=== PATIENT | female | born 1980 | race American Indian/Alaskan Native ===

== ENCOUNTER 2017-03-07 13:00 | Inpatient (IN) | payer MEDICARE ==
[2017-03-07] MEDS ORDERED: TYLENOL PO ONE (14:14)
--- NOTE | 2017-03-07 14:16 | Emergency Department Report ---
Entered by JO-ANN MICHAELS, acting as scribe for KAREL LIRA NP. Chief Complaint: Fever Stated Complaint: SICKLE CELL PAIN Time Seen by Provider: 03/07/17 13:50 - HPI History of Present Illness: Pt is non-toxic, non ill appearing, in no acute distress with c/o a fever and cramping right low back pain. Patient states she had a fever of 102 last night. Denies urgency, frequency, and dysuria. Denies abdominal pain, nausea, and vomiting PMHx of sickle cell anemia. Pt denies that this feels like a sickle cell crisis - ROS Review of Systems: Reports fever. Reports right low back pain Denies dysuria, urgency, and frequency Denies abdominal pain, nausea, and vomiting - Exam Vital Signs: Vital Signs 03/07/17 13:37 Temperature 100.1 F H Pulse Rate 93 H Blood Pressure 98/68 O2 Sat by Pulse 100 Oximetry Physical Exam: Constitutional: Non toxic appearing, NAD. Cardiovascular: Normal rate and rhythm with normal S1/S2 sounds. Respiratory: No respiratory distress. Lung sounds clear to auscultation bilaterally. Abdomen: Abdomen is non-distended, soft with no tenderness to palpation in all quadrants. Back: FROM. No spinal tenderness. Right CVA tenderness present. MSE screening note: Focused history and physical exam performed. Due to findings the following was ordered: BMP, CBC, pregnanct test, type and screen stat, reticulocyte count, and UA will be ordered for patient Pt also received acetaminophen 650 mg by mouth for fever and pain. ED Disposition for MSE Condition: Stable This documentation as recorded by the scribe,JO-ANN MICHAELS,accurately reflects the service I personally performed and the decisions made by me,KAREL LIRA, JOSTIN.
[2017-03-07 14:51] LABS: Bacteria,Urine 2+ /HPF (Negative); Bilirubin,Urine NEG (Negative); Blood,Urine NEG (Negative); Ketones,Urine NEG (Negative); Leukocyte Esterase,Urine NEG (Negative); Nitrite,Urine NEG (Negative); Urobilinogen,Urine < 2.0 mg/dL (<2.0); WBC,Urine < 1.0 /HPF (0.0-6.0)
[2017-03-08] MEDS ORDERED: BENADRYL IV ONE (02:56)
[2017-03-08] MEDS ORDERED: MORPHINE IV ONE (02:56)
[2017-03-08] MEDS ORDERED: ZOFRAN IV ONE (02:56)
[2017-03-08] MEDS ORDERED: TORADOL IV ONE (02:56)
[2017-03-08] MEDS ORDERED: D5NS 0.2% 1,000 ML IV SCH (03:00)
[2017-03-08 03:33] LABS: Basophils % (Auto) 0.4 % (0.0-1.8); Eosinophils % (Auto) 0.7 % (0.0-4.3); Hemoglobin 6.7 gm/dl (10.1-14.3); Mean Corpuscular HGB Conc 34 % (30-34); Mean Corpuscular Hemoglobin 29 pg (28-32); Mean Corpuscular Volume 85 fl (79-97); Platelet Count 218 K/mm3 (140-440); Red Blood Count 2.32 M/mm3 (3.65-5.03); Reticulocyte % 4.01 % (0.78-2.58); White Blood Count 14.4 K/mm3 (4.5-11.0)
[2017-03-08 03:38] LABS: Red Cell Distribution Width 22.5 % (13.2-15.2)
[2017-03-08 03:39] LABS: Hematocrit 19.7 % (30.3-42.9)
[2017-03-08 03:43] LABS: Anion Gap 19 mmol/L; Blood Urea Nitrogen 11 mg/dL (7-17); Calcium 8.3 mg/dL (8.4-10.2); Carbon Dioxide 19 mmol/L (22-30); Glucose 83 mg/dL (65-100); Potassium 4.2 mmol/L (3.6-5.0); Sodium 134 mmol/L (137-145)
[2017-03-08 03:53] LABS: Albumin/Globulin Ratio 1.1 %; Bilirubin,Direct 0.4 mg/dL (0-0.2); Bilirubin,Indirect 2.1 mg/dL; Bilirubin,Total 2.5 mg/dL (0.1-1.2); Total Protein 7.5 g/dL (6.3-8.2)
--- NOTE | 2017-03-08 05:02 | Cat Scan Report ---
FINAL REPORT PROCEDURE: CT ABDOMEN PELVIS WO CON TECHNIQUE: Computerized axial tomography of the abdomen and pelvis was performed without intravenous contrast. This study is performed without intravascular contrast material and its sensitivity for abdominal and pelvic pathology, including neoplasms, inflammation, abscess, free fluid, thrombosis, arterial dissection and infarction, is reduced compared with a contrast enhanced study. HISTORY: right flank pain, sickle cell, fever COMPARISON: No prior studies are available for comparison. FINDINGS: Visualized lower thorax: There is calcified granuloma the right lung base. There are no infiltrates. Liver: Normal size and attenuation. 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 Gallbladder and biliary system: There has been a cholecystectomy.. Pancreas: Normal. Adrenals: Normal. Kidneys: There are no kidney stones. There is no hydronephrosis.. GI tract: The appendix is normal. There is no bowel obstruction, colitis or enteritis. Lymph nodes and mesentery: Normal. Vasculature: Normal. Bladder: Normal. Reproductive organs: Uterus is normal in size. There is ill-defined mass in the left adnexal region measuring approximately 5.3 x 4.5 x 5.2 centimeters. There is surrounding fluid. This could be a hemorrhagic left ovarian cyst or mass. Further evaluation with ultrasound may be helpful.. Peritoneum: There is a small amount of free pelvic fluid.. Musculoskeletal structures: There are sclerotic densities in the thoracic and lumbar spine suggesting old bony infarcts related to sickle cell disease.. Other: There is a small umbilical hernia containing fat only.. 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 There has been a cholecystectomy.. There are no kidney stones. There is no hydronephrosis.. The appendix is normal. There is no bowel obstruction, colitis or enteritis. There is ill-defined mass in the left adnexal region measuring approximately 5.3 x 4.5 x 5.2 centimeters. There is surrounding fluid. This could be a hemorrhagic left ovarian cyst or mass. Further evaluation with ultrasound may be helpful.. There is a small amount of free pelvic fluid.. .
--- NOTE | 2017-03-08 05:04 | Emergency Department Report ---
ED Fever HPI - General Chief Complaint: Fever Stated Complaint: SICKLE CELL PAIN Time Seen by Provider: 03/07/17 20:38 Source: patient Exam Limitations: no limitations - History of Present Illness Initial Comments: 36-year-old female the past medical history sickle cell disease and seizures presents to the hospital complaining of right flank pain 2 days. Pain is constant, aching, rated 8/10 intensity. Worse with movement and palpation. No alleviating factors. Patient has had a fever high of 100.2 since last night. Patient denies nausea, vomiting, cough, abdominal pain, dysuria, or diarrhea. 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 Patient states she still has her spleen to her knowledge and that this feels different from her typical sickle cell crisis ED Review of Systems ROS: Stated complaint: SICKLE CELL PAIN Other details as noted in HPI Comment: All other systems reviewed and negative Other: Constitutional: As per HPI Eyes: No eye pain visual changes ENT: No ear pain or throat pain Neck: Denies pain Respiratory: Denies cough wheezing shortness of breath Cardiovascular: Denies chest pain, palpitations, syncope GI: Denies abdominal pain : Denies dysuria Musculoskeletal: As per HPI Skin: Denies rash, lesions, erythema Neurologic: Denies headache, numbness, weakness Psychiatric: Denies suicidal ideation, hallucinations ED Past Medical Hx - Past Medical History Hx Sickle Cell Disease: Yes Hx Seizures: Yes Additional medical history: Sickle cell - Surgical History Hx Cholecystectomy: Yes Additional Surgical History: port in left chest - Social History Smoking Status: Never Smoker Substance Use Type: Alcohol - Medications Home Medications: Home Medications Medication Instructions Recorded Confirmed Last Taken Type Acetaminophen/Codeine 1 tab PO Q6H PRN #30 tab 07/01/14 03/08/17 03/07/17 Rx [Acetaminophen-Codeine #3 TAB] Cyclobenzaprine [Flexeril 10mg] 10 mg PO TID PRN #30 tablet 07/01/14 03/08/17 Rx Ibuprofen [Motrin 800 MG tab] 800 mg PO Q6HR PRN #50 tablet 07/01/14 03/08/17 Rx ED Physical Exam - General Limitations: No Limitations - Other Other exam information: General: No limitations, patient is alert in no acute distress Head exam: Atraumatic, normocephalic Eyes exam: Normal appearance ENT: Moist mucous membrane, normal oropharynx Neck exam: Normal inspection, full range of motion, no meningismus nontender Respiratory exam: Clear to auscultation bilateral, no wheezes, rales, crackles. Patient supports to left chest wall Cardiovascular: Normal rate and rhythm Abdomen: Soft, nondistended, and nontender, with normal bowel sounds, no rebound, or guarding Extremity: Full range of motion normal inspection no deformity Back: Normal Inspection, full range of motion, right flank tenderness to palpation. No midline tenderness Neurologic: Alert, oriented x3, cranial nerves intact, no motor or sensory deficit Psychiatric: normal affect, normal mood Skin: Warm, dry, intactm ED Course Vital Signs 03/07/17 03/07/17 03/08/17 13:37 23:48 02:40 Temperature 100.1 F H 99.6 F 100.2 F H Pulse Rate 93 H 71 Respiratory 18 Rate Blood Pressure 98/68 103/67 O2 Sat by Pulse 100 100 Oximetry ED Medical Decision Making - Lab Data Result diagrams: 03/08/17 03:01 03/08/17 03:01 Lab Results 03/07/17 03/08/17 03/08/17 Range/Units 14:33 03:01 03:01 WBC 14.4 H (4.5-11.0) K/mm3 RBC 2.32 L (3.65-5.03) M/mm3 Hgb 6.7 L (10.1-14.3) gm/dl Hct 19.7 L* (30.3-42.9) % MCV 85 (79-97) fl MCH 29 (28-32) pg MCHC 34 (30-34) % RDW 22.5 H (13.2-15.2) % Plt Count 218 (140-440) K/mm3 Lymph % (Auto) 15.9 (13.4-35.0) % [place] % (Auto) 8.0 H (0.0-7.3) % Eos % (Auto) 0.7 (0.0-4.3) % Baso % (Auto) 0.4 (0.0-1.8) % Lymph # 2.3 (1.2-5.4) K/mm3 [place] # 1.2 H (0.0-0.8) K/mm3 Eos # 0.1 (0.0-0.4) K/mm3 Baso # 0.1 (0.0-0.1) K/mm3 Seg Neutrophils % 75.0 H (40.0-70.0) % Seg Neutrophils # 10.8 H (1.8-7.7) K/mm3 Percent Retic 4.01 H (0.78-2.58) % Carbon Dioxide 19 L (22-30) mmol/L Anion Gap 19 mmol/L BUN 11 (7-17) mg/dL Creatinine 0.4 L (0.7-1.2) mg/dL Estimated GFR > 60 ml/min BUN/Creatinine Ratio 27.50 % Glucose 83 (65-100) mg/dL Calcium 8.3 L (8.4-10.2) mg/dL Total Bilirubin (0.1-1.2) mg/dL Direct Bilirubin (0-0.2) mg/dL Indirect Bilirubin mg/dL AST (5-40) units/L ALT (7-56) units/L Alkaline Phosphatase (35-129) units/L Total Protein (6.3-8.2) g/dL Albumin (3.9-5) g/dL Albumin/Globulin Ratio % HCG, Qual (Negative) Urine Color Yellow (Yellow) Urine Turbidity Clear (Clear) Urine pH 7.0 (5.0-7.0) Ur Specific [place] 1.010 (1.003-1.030) Urine Protein 30 mg/dl (Negative) mg/dL Urine Glucose (UA) Neg (Negative) mg/dL Urine Ketones Neg (Negative) mg/dL Urine Blood Neg (Negative) Urine Nitrite Neg (Negative) Urine Bilirubin Neg (Negative) Urine Urobilinogen < 2.0 (<2.0) mg/dL Ur Leukocyte Esterase Neg (Negative) Urine WBC (Auto) < 1.0 (0.0-6.0) /HPF Urine RBC (Auto) 1.0 (0.0-6.0) /HPF U Epithel Cells (Auto) < 1.0 (0-13.0) /HPF Urine Bacteria (Auto) 2+ (Negative) /HPF 03/08/17 03/08/17 Range/Units 03:01 03:01 WBC (4.5-11.0) K/mm3 RBC (3.65-5.03) M/mm3 Hgb (10.1-14.3) gm/dl Hct (30.3-42.9) % MCV (79-97) fl MCH (28-32) pg MCHC (30-34) % RDW (13.2-15.2) % Plt Count (140-440) K/mm3 Lymph % (Auto) (13.4-35.0) % [place] % (Auto) (0.0-7.3) % Eos % (Auto) (0.0-4.3) % Baso % (Auto) (0.0-1.8) % Lymph # (1.2-5.4) K/mm3 [place] # (0.0-0.8) K/mm3 Eos # (0.0-0.4) K/mm3 Baso # (0.0-0.1) K/mm3 Seg Neutrophils % (40.0-70.0) % Seg Neutrophils # (1.8-7.7) K/mm3 Percent Retic (0.78-2.58) % Carbon Dioxide (22-30) mmol/L Anion Gap mmol/L BUN (7-17) mg/dL Creatinine (0.7-1.2) mg/dL Estimated GFR ml/min BUN/Creatinine Ratio % Glucose (65-100) mg/dL Calcium (8.4-10.2) mg/dL Total Bilirubin 2.50 H (0.1-1.2) mg/dL Direct Bilirubin 0.4 H (0-0.2) mg/dL Indirect Bilirubin 2.1 mg/dL AST 47 H (5-40) units/L ALT 16 (7-56) units/L Alkaline Phosphatase 68 (35-129) units/L Total Protein 7.5 (6.3-8.2) g/dL Albumin 4.0 (3.9-5) g/dL Albumin/Globulin Ratio 1.1 % HCG, Qual Negative (Negative) Urine Color (Yellow) Urine Turbidity (Clear) Urine pH (5.0-7.0) Ur Specific [place] (1.003-1.030) Urine Protein (Negative) mg/dL Urine Glucose (UA) (Negative) mg/dL Urine Ketones (Negative) mg/dL Urine Blood (Negative) Urine Nitrite (Negative) Urine Bilirubin (Negative) Urine Urobilinogen (<2.0) mg/dL Ur Leukocyte Esterase (Negative) Urine WBC (Auto) (0.0-6.0) /HPF Urine RBC (Auto) (0.0-6.0) /HPF U Epithel Cells (Auto) (0-13.0) /HPF Urine Bacteria (Auto) (Negative) /HPF na= 134 K 4.2 chl 100 - Radiology Data Radiology results: report reviewed ct abd and pelvis noncontrast. Spleen is atrophic and dense suggesting possible old spenic infarct. Pedis cholecystectomy. Appendix normal. No kidney stones. Mass in the left adnexal region measuring 5.3 x 4.5 x 5.2 cm. There is surrounding fluid. This could be a hemorrhagic left ovarian cyst or mass. - Medical Decision Making Plans admit patient to hospital for sickle cell crisis with associated anemia and fever. Source of fever unknown at this time. Ultrasound transvaginal pending at disposition. Vancomycin ordered empirically. Blood cultures pending - Differential Diagnosis UTI, renal colic, appendicitis, diverticulitis, sickle cell crisis, bactere Critical Care Time: No Critical care attestation.: If time is entered above; I have spent that time in minutes in the direct care of this critically ill patient, excluding procedure time. ED Disposition Clinical Impression: Fever, Right flank pain, Left ovarian cyst Disposition: 09 OP ADMIT IP TO THIS HOSP Is pt being admited?: Yes Condition: Stable Time of Disposition: 06:10 (Dr Garcia/hosp)
[2017-03-08] MEDS ORDERED: NACL 0.9% 1000 ML 1,000 ML IV ONE (06:07)
[2017-03-08] MEDS ORDERED: VANCOMYCIN/NS 1 GM/250 ML 1 GM/250 ML BAG IV ONE (06:09)
--- NOTE | 2017-03-08 07:22 | Admit Criteria Form ---
Admission Criteria Documentation: SICKLE CELL DISEASE Clinical Indications for Admission to Inpatient Care (Place 'X' for any and all applicable criteria): Admission is indicated for ANY ONE of the following(1)(2)(3)(4)(5): [X]I. Inpatient admission required rather than observation care because of ANY ONE of the following: [ ]a) Altered mental status [X]b) High fever or infection requiring inpatient admission as indicated by ANY ONE of the following: [X]A. Appropriate outpatient observation care antimicrobial treatment unavailable, not effective, or not appropriate for infection [ ]B. Documented bacteremia [ ]C. Temp >104.9F (40.5C) (oral) [ ]D. Temp >103.1F (oral) or <96.8F(rectal) that does not respond to all emergency treatment measures [ ]c) Supplemental O2 or respiratory therapy for over 24 h that are performable only in acute inpatient setting [X]d) Continuous parenteral narcoticsother major pain intervention for >24 h performable only in acute inpatient setting. [ ]e) Exchange transfusion [X]f) Other condition, treatment or monitoring requiring inpatient admission [ ]II. Acute chest syndrome indicated by ALL of the following (10): [ ]a) New alveolar infiltrate involving at least one lung segment [ ]b) Associated pulmonary symptoms or findings as indicated by ANY ONE of the following: [ ]i) Chest pain [ ]ii) Hypoxemia [ ]iii) Tachypnea/dyspnea [ ]iv) Wheezing [ ]v) Cough [ ]vi) Sputum production [ ]III. Significant hypoxemia or acidosis (more severe than baseline) [ ]IV. Emergent surgery needed (eg, acute cholecystitis) [ ]V. -related complication(11) [ ]. Splenic or hepatic sequestration(12) [ ]VII. Aplastic crisis [ ]VIII. Priapism or other vascular complication(13) [ ]IX. Traumatic hyphema [A](14) [ ]X. Underlying condition requiring hospitalization (eg, osteomyelitis) [ ]XI. Signs or symptoms of central nervous system injury indicated by ANY ONE of the following: [ ]a) Stroke(9) [ ]b) Seizure [ ]c) Other significant central nervous system symptom or event [ ]XII. Acute renal failure Extended stay beyond goal length of stay may be needed for: [ ]a) Inadequate pain control [ ]b) Acute chest syndrome [ ]c) Sequestration or aplastic crisis (12) [ ]d) Pneumonia and asthma exacerbation [ ]e) Neurologic or vascular complications (25) [ ]f) Infection (eg, osteomyelitis) that requires ongoing treatment) The original [facility] [employer] content created by [facility] has been revised. The portions of the content which have been revised are identified through the use of italic text or in bold, and [facility] has neither reviewed nor approved the modified material. All other unmodified content is copyright [facility]. Please see references footnoted in the original [facility] [employer] edition 2016 Admission Criteria Met: Yes
[2017-03-08] MEDS ORDERED: MORPHINE ONE (07:26)
[2017-03-08] MEDS ORDERED: TYLENOL PO PRN (07:36)
[2017-03-08] MEDS ORDERED: ZOFRAN IV PRN (07:36)
[2017-03-08] MEDS ORDERED: MILK OF MAGNESIA PO PRN ×2 (07:36)
[2017-03-08] MEDS ORDERED: DULCOLAX PR PRN ×2 (07:36)
[2017-03-08] MEDS ORDERED: ZOFRAN ONE (07:40)
[2017-03-08] MEDS: ZOFRAN IV PRN ×2 (07:45→20:56)
--- NOTE | 2017-03-08 07:48 | Ultrasound Report ---
ULTRASOUND PELVIS DUPLEX DOPPLER COMPLETE ULTRASOUND TRANSVAGINAL HISTORY: Left adnexal mass, fever. TECHNIQUE: Transabdominal and transvaginal ultrasound with color and spectral doppler interrogation. FINDINGS: CT abdomen pelvis without contrast performed earlier the same day was reviewed. Ultrasound also demonstrates a complex, heterogeneous, partially cystic mass in the left adnexa measuring 4.1 x 2.9 x 2.9 cm. The left ovary is not clearly demonstrated on ultrasound. With given history of fever, this may represent an early left tubo-ovarian abscess. The right ovary measures 4.3 x 2.6 x 4.0 cm. There are 2 simple cysts in the right ovary measuring 2.6 cm and 1.6 cm. The uterus is anteverted and measures 8.2 x 3.8 x 3.1 cm. No uterine mass. Normal cervix. Normal endometrium measuring 7.3 cm. No pelvic ascites is appreciated. Spectral Doppler interrogation demonstrates arterial flow to both adnexal regions. IMPRESSION: Complex mass like lesion in the left adnexa as described above. With given history, PID or early left tubo-ovarian abscess should be considered. This does not have the typical appearance of a mass/neoplasm. Hemorrhagic cyst could be considered but is thought less likely. Please note that the left ovary is not clearly demonstrated on ultrasound. CT with IV and oral contrast may provide additional detail of the left adnexal process. Please correlate with the patient's clinical presentation. 2 simple cysts in the right ovary.
--- NOTE | 2017-03-08 07:51 | History and Physical Report ---
History of Present Illness Date of examination: 03/08/17 Date of admission: 03/08/17 Chief complaint: Fever and Right flank pain History of present illness: A 36-year-old -N[place]alese female presented to the ED from home with complaints of right flank pain 2 days. Pain is constant aching, rated 8 of 10 on a scale of 0/10. Worse with movement and palpation. No alleviating factors. Patient has had a fever high of 100.2 past 2 days. Patient denies nausea, vomiting, cough, shortness of breath, abdominal pain, dysuria, or diarrhea. 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 Past History Past Medical History: other (Sickle Cell Anemia) Past Surgical History: Other (Right Chest wall Port placed 2001) Social history: single, lives with family (lives with her son), full code. denies: smoking, alcohol abuse, prescription drug abuse, IV drug use Family history: CAD, diabetes. denies: other (Cardiac arrest) Medications and Allergies Allergies Allergy/AdvReac Type Severity Reaction Status Date / Time amoxicillin Allergy Hives Verified 03/08/17 06:09 erythromycin base Allergy Hives Verified 11/24/15 19:24 Home Medications Medication Instructions Recorded Confirmed Last Taken Type Acetaminophen/Codeine [Tylenol 1 tab PO Q6H PRN #30 tab 07/01/14 03/08/17 Rx /Codeine # 3 tab] Cyclobenzaprine [Flexeril 10 MG 10 mg PO TID PRN #30 tablet 07/01/14 03/08/17 Rx TAB] Ciprofloxacin HCl [Ciprofloxacin 500 mg PO Q12H #10 tab 03/09/17 Unknown Rx TAB] Folic Acid [Folvite] 1 mg PO QDAY #30 tablet 03/09/17 Unknown Rx Multivitamin Tab [Multiple Vitamin 1 each PO QDAY #30 tablet 03/09/17 Unknown Rx TAB (Theragran)] metroNIDAZOLE [Flagyl] 500 mg PO Q12HR #10 tab 03/09/17 Unknown Rx Active Meds: Active Medications Acetaminophen (Tylenol) 650 mg PO Q4H PRN PRN Reason: Pain MILD(1-3)/Fever >100.5/BAY Bisacodyl (Dulcolax) 10 mg MT QDAY PRN PRN Reason: Constipation unrelieved by MOM Folic Acid (Folvite) 1 mg PO QDAY [facility] Hydromorphone HCl (Dilaudid) 0.5 mg IV Q3H PRN PRN Reason: Pain , Severe (7-10) Magnesium Hydroxide (Milk Of Magnesia) 30 ml PO Q4H PRN PRN Reason: Constipation Multivitamins (Theragran Tab) 1 each PO QDAY [facility] Ondansetron HCl (Zofran) 4 mg IV Q8H PRN PRN Reason: Nausea And Vomiting Review of Systems Constitutional: fever, no chills, no sweats Ears, nose, mouth and throat: no nasal congestion, no nasal discharge, no hoarseness, no sore throat Breasts: normal Cardiovascular: no edema, no syncope, no lightheadedness, no shortness of breath Respiratory: no cough with sputum, no congestion, no wheezing Gastrointestinal: abdominal pain, no nausea, no vomiting, no diarrhea, no constipation Rectal: no pain, no incontinence Neurological: no numbness, no seizures, no syncope Psychiatric: no anxiety, no suicidal ideation, no depression Endocrine: no fatigue Exam - Constitutional Vitals: Temp Pulse Resp BP Pulse Ox 100.2 F H 71 18 103/67 100 03/08/17 02:40 03/07/17 23:48 03/07/17 23:48 03/07/17 23:48 03/07/17 23:48 General appearance: Absent: no acute distress - EENT Eyes: Present: PERRL ENT: hearing intact, clear oral mucosa - Neck Neck: Present: supple, normal ROM - Respiratory Respiratory effort: normal Respiratory: bilateral: CTA - Cardiovascular Rhythm: regular Heart Sounds: Present: S1 & S2. Absent: rub, click - Extremities Extremities: pulses symmetrical, No edema Peripheral Pulses: within normal limits - Abdominal General gastrointestinal: Present: soft, non-tender, non-distended, normal bowel sounds Female genitourinary: Present: normal - Integumentary Integumentary: Present: clear, warm, dry - Musculoskeletal Musculoskeletal: gait normal, strength equal bilaterally - Psychiatric Psychiatric: appropriate mood/affect, intact judgment & insight - Neurologic Neurologic: CNII-XII intact, moves all extremities - Allied Health Allied health notes reviewed: nursing Results - Labs CBC & Chem 7: 03/09/17 04:04 03/09/17 04:04 Labs: Laboratory Last Values WBC 14.4 K/mm3 (4.5-11.0) H 03/08/17 03:01 RBC 2.32 M/mm3 (3.65-5.03) L 03/08/17 03:01 Hgb 6.7 gm/dl (10.1-14.3) L 03/08/17 03:01 Hct 19.7 % (30.3-42.9) L* 03/08/17 03:01 MCV 85 fl (79-97) 03/08/17 03:01 MCH 29 pg (28-32) 03/08/17 03:01 MCHC 34 % (30-34) 03/08/17 03:01 RDW 22.5 % (13.2-15.2) H 03/08/17 03:01 Plt Count 218 K/mm3 (140-440) 03/08/17 03:01 Lymph % (Auto) 15.9 % (13.4-35.0) 03/08/17 03:01 [place] % (Auto) 8.0 % (0.0-7.3) H 03/08/17 03:01 Eos % (Auto) 0.7 % (0.0-4.3) 03/08/17 03:01 Baso % (Auto) 0.4 % (0.0-1.8) 03/08/17 03:01 Lymph # 2.3 K/mm3 (1.2-5.4) 03/08/17 03:01 [place] # 1.2 K/mm3 (0.0-0.8) H 03/08/17 03:01 Eos # 0.1 K/mm3 (0.0-0.4) 03/08/17 03:01 Baso # 0.1 K/mm3 (0.0-0.1) 03/08/17 03:01 Seg Neutrophils % 75.0 % (40.0-70.0) H 03/08/17 03:01 Seg Neutrophils # 10.8 K/mm3 (1.8-7.7) H 03/08/17 03:01 Percent Retic 4.01 % (0.78-2.58) H 03/08/17 03:01 Carbon Dioxide 19 mmol/L (22-30) L 03/08/17 03:01 Anion Gap 19 mmol/L 03/08/17 03:01 BUN 11 mg/dL (7-17) 03/08/17 03:01 Creatinine 0.4 mg/dL (0.7-1.2) L 03/08/17 03:01 Estimated GFR > 60 ml/min 03/08/17 03:01 BUN/Creatinine Ratio 27.50 % 03/08/17 03:01 Glucose 83 mg/dL (65-100) 03/08/17 03:01 Calcium 8.3 mg/dL (8.4-10.2) L 03/08/17 03:01 Total Bilirubin 2.50 mg/dL (0.1-1.2) H 03/08/17 03:01 Direct Bilirubin 0.4 mg/dL (0-0.2) H 03/08/17 03:01 Indirect Bilirubin 2.1 mg/dL 03/08/17 03:01 AST 47 units/L (5-40) H 03/08/17 03:01 ALT 16 units/L (7-56) 03/08/17 03:01 Alkaline Phosphatase 68 units/L (35-129) 03/08/17 03:01 Total Protein 7.5 g/dL (6.3-8.2) 03/08/17 03:01 Albumin 4.0 g/dL (3.9-5) 03/08/17 03:01 Albumin/Globulin Ratio 1.1 % 03/08/17 03:01 HCG, Qual Negative (Negative) 03/08/17 03:01 Urine Color Yellow (Yellow) 03/07/17 14:33 Urine Turbidity Clear (Clear) 03/07/17 14:33 Urine pH 7.0 (5.0-7.0) 03/07/17 14:33 Ur Specific [place] 1.010 (1.003-1.030) 03/07/17 14:33 Urine Protein 30 mg/dl mg/dL (Negative) 03/07/17 14:33 Urine Glucose (UA) Neg mg/dL (Negative) 03/07/17 14:33 Urine Ketones Neg mg/dL (Negative) 03/07/17 14:33 Urine Blood Neg (Negative) 03/07/17 14:33 Urine Nitrite Neg (Negative) 03/07/17 14:33 Urine Bilirubin Neg (Negative) 03/07/17 14:33 Urine Urobilinogen < 2.0 mg/dL (<2.0) 03/07/17 14:33 Ur Leukocyte Esterase Neg (Negative) 03/07/17 14:33 Urine WBC (Auto) < 1.0 /HPF (0.0-6.0) 03/07/17 14:33 Urine RBC (Auto) 1.0 /HPF (0.0-6.0) 03/07/17 14:33 U Epithel Cells (Auto) < 1.0 /HPF (0-13.0) 03/07/17 14:33 Urine Bacteria (Auto) 2+ /HPF (Negative) 03/07/17 14:33 Assessment and Plan Assessment and plan: A 36-year-old -N[place]alese female presented to the ED from home with complaints of right flank pain 2 days. Pain is constant aching, rated 8 of 10 on a scale of 0/10. Worse with movement and palpation. No alleviating factors. Patient has had a fever high of 100.2 since last night. Patient denies nausea, vomiting, cough, abdominal pain, dysuria, or diarrhea. 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 Patient's records from [place] have been requested. -Sickle cell crisis-consulted hematology, IV fluids hydration ordered, antibiotics ordered, O2 supplement when needed to keep O2 sat greater than 90%, when necessary pain medication ordered -Chronic anemia due to sickle cell anemia- will monitor H&H and will transfuse if hemoglobin is 5.0 or less -Ovarian cysts- consulted [facility] -Leukocytosis-rule out sepsis, lactic acid normal, possible to due to sickle cell crisis versus hemorrhagic ovarian cyst- treating underlying causes -DVT prophylaxis- heparin SQ ordered Advance Directives: No ( Full code) VTE prophylaxis?: Chemical Plan of care discussed with patient/family: Yes
[2017-03-08] MEDS ORDERED: MOTRIN PO PRN (08:22)
[2017-03-08] MEDS ORDERED: FLEXERIL PO PRN (08:22)
--- NOTE | 2017-03-08 09:59 | XRay Report ---
ROUTINE CHEST, TWO VIEWS: HISTORY: Shortness of breath, evaluate for pneumonia. The trachea, heart, mediastinal contour, lung alaniz and bony thorax are unremarkable. Right [id number] is in good position. IMPRESSION: Unremarkable chest x-ray.
[2017-03-08] MEDS: THERAGRAN Tab PO SCH (11:43)
[2017-03-08] MEDS: FOLVITE PO SCH (11:43)
[2017-03-08] MEDS: FLAGYL 500 MG/100 ML 500 MG/100 ML BAG IV SCH ×3 (11:45→22:42)
[2017-03-08] MEDS: LEVAQUIN 750MG/150ML 750 MG/150 ML BAG IV SCH (13:16)
--- NOTE | 2017-03-08 13:21 | Consultation ---
History of Present Illness Consult date: 03/08/17 Reason for consult: pelvic pain, ovarian cyst, pelvic mass History of present illness: A 36-year-old female 2 para 1 LMP 02/12/2017. She presented to [facility] ED today complaining of right flank pain and temperature of 100.1 at home. Her evaluation in the ED revealed a white count of 14,000. She again had a temperature of 100.1. Ultrasound revealed a left adnexal complex cystic structure measuring approximately 4 cm. Findings were concerning for TOA/abscess. Today patient states she started having left lower quadrant pain last PM. She denies fevers, chills, nausea,vomiting. She denies vaginal discharge. She states she has not had sex since the beginning of 2015. 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 History: denies: abnormal PAP smear (she states her last Pap smear was 2 years ago.), cancer, chlamydia, fibroids, gonorrhea, hepatitis B, hepatitis C, herpes, HIV, syphilis, trichomonas - Obstetrical History : 2 Para: 1 Hx # Term Pregnancies: 1 Spontaneous Abortions: 1 Number of Living Children: 1 Medications and Allergies Allergies Allergy/AdvReac Type Severity Reaction Status Date / Time amoxicillin Allergy Hives Verified 03/08/17 06:09 erythromycin base Allergy Hives Verified 11/24/15 19:24 Home Medications Medication Instructions Recorded Confirmed Last Taken Type Acetaminophen/Codeine 1 tab PO Q6H PRN #30 tab 07/01/14 03/08/17 03/07/17 Rx [Acetaminophen-Codeine #3 TAB] Cyclobenzaprine [Flexeril 10mg] 10 mg PO TID PRN #30 tablet 07/01/14 03/08/17 Rx Ibuprofen [Motrin 800 MG tab] 800 mg PO Q6HR PRN #50 tablet 07/01/14 03/08/17 Rx Active Meds: Active Medications Acetaminophen (Tylenol) 650 mg PO Q4H PRN PRN Reason: Pain MILD(1-3)/Fever >100.5/BAY Bisacodyl (Dulcolax) 10 mg DE QDAY PRN PRN Reason: Constipation unrelieved by MOM Cyclobenzaprine HCl (Flexeril) 10 mg PO TID PRN PRN Reason: Muscle Spasm Enoxaparin Sodium (Lovenox) 40 mg SUB-Q ONCE ONE Stop: 03/08/17 13:16 Folic Acid (Folvite) 1 mg PO QDAY [facility] Last Admin: 03/08/17 11:43 Dose: 1 mg Hydromorphone HCl (Dilaudid) 0.5 mg IV Q3H PRN PRN Reason: Pain , Severe (7-10) Metronidazole (Flagyl 500 Mg/100 Ml) 500 mg in 100 mls @ 100 mls/hr IV Q8HR [facility] Last Admin: 03/08/17 11:45 Dose: 100 mls/hr Sodium Chloride (Nacl 0.9% 1000 Ml) 1,000 mls @ 125 mls/hr IV DIRECT [facility] Levofloxacin/Dextrose (Levaquin 750mg/150ml) 750 mg in 150 mls @ 100 mls/hr IV Q24HR [facility] PRN Reason: Protocol Last Admin: 03/08/17 13:16 Dose: 100 mls/hr Magnesium Hydroxide (Milk Of Magnesia) 30 ml PO Q4H PRN PRN Reason: Constipation Multivitamins (Theragran Tab) 1 each PO QDAY [facility] Last Admin: 03/08/17 11:43 Dose: 1 each Ondansetron HCl (Zofran) 4 mg IV Q8H PRN PRN Reason: Nausea And Vomiting Last Admin: 03/08/17 07:45 Dose: 4 mg Review of Systems All systems: negative Gastrointestinal: abdominal pain Genitourinary: pelvic pain - Vital Signs Vital signs: Vital Signs Temp Pulse BP Pulse Ox 100.1 F H 93 H 98/68 100 03/07/17 13:37 03/07/17 13:37 03/07/17 13:37 03/07/17 13:37 Temp Pulse Resp BP Pulse Ox 99 F 78 16 107/73 100 03/08/17 09:00 03/08/17 09:00 03/08/17 09:00 03/08/17 09:00 03/08/17 08:00 - Physical Exam Breasts: Positive: deferred Abdomen: Positive: normal appearance, soft, normal bowel sounds Vulva: both: normal Vagina: Positive: normal moisture Cervix: Positive: other (negative for cervical motion tenderness) Adnexa: both: normal Anus/Rectum: Positive: normal perianal skin Extremities: Positive: normal Results Result Diagrams: 03/08/17 03:01 03/08/17 03:01 All other labs normal. Ultrasound: report reviewed, image reviewed CT scan - abdomen: report reviewed Assessment and Plan - Patient Problems (1) LLQ pain Current Visit: Yes Status: Acute (2) Left ovarian cyst Current Visit: Yes Status: Acute Plan to address problem: Patient to call picture is more consistent with hemorrhagic cyst. Clinical exam is not consistent with pelvic inflammatory disease. However recommend the patient continue with Levaquin and metronidazole for now. Will perform a gonorrhea and chlamydia. Follow with you
[2017-03-08] MEDS ORDERED: LOVENOX SUB-Q SCH (14:00)
[2017-03-08] MEDS: DILAUDID IV PRN ×2 (14:48→20:55)
[2017-03-08 17:32] LABS: Hemoglobin 5.8 gm/dl (10.1-14.3)
[2017-03-08 17:33] LABS: Hematocrit 16.8 % (30.3-42.9)
[2017-03-08] MEDS ORDERED: NACL 0.9% 500 ML 500 ML IV SCH ×2 (17:50→19:00)
[2017-03-08] MEDS: NACL 0.9% 1000 ML 1,000 ML IV SCH (18:51)
--- NOTE | 2017-03-08 19:50 | Consultation ---
History of Present Illness - Reason for Consult Consult date: 03/08/17 SCD/Pain/ANEMIA Requesting physician: DOROTEO BRYANT - History of Present Illness Thank you for this consult, Patient seen/examined, record/labs reviewed, case d/ w patient. kindly asked to see for reasons above. patient presented withLeft adenoma pain/fever, w/up in the ED revealed abscess like lesion, Patient is started on IV ABX/hydration/ pain meds. Currently, she is ok with pain control.Will monitor labs/patient with you. Blood transfusion ,appropriate when indicated. Past History Past Medical History: anemia, other (Sickle Cell Anemia) Past Surgical History: cholecystectomy, Other (Right Chest wall Port placed 2001 ) Social history: single, lives with family (lives with her son), full code. denies: smoking, alcohol abuse, prescription drug abuse, IV drug use Family history: CAD, diabetes. denies: other (Cardiac arrest) Medications and Allergies Allergies Allergy/AdvReac Type Severity Reaction Status Date / Time amoxicillin Allergy Hives Verified 03/08/17 06:09 erythromycin base Allergy Hives Verified 11/24/15 19:24 Home Medications Medication Instructions Recorded Confirmed Last Taken Type Acetaminophen/Codeine 1 tab PO Q6H PRN #30 tab 07/01/14 03/08/17 03/07/17 Rx [Acetaminophen-Codeine #3 TAB] Cyclobenzaprine [Flexeril 10mg] 10 mg PO TID PRN #30 tablet 07/01/14 03/08/17 Rx Ibuprofen [Motrin 800 MG tab] 800 mg PO Q6HR PRN #50 tablet 07/01/14 03/08/17 Rx Active Meds: Active Medications Acetaminophen (Tylenol) 650 mg PO Q4H PRN PRN Reason: Pain MILD(1-3)/Fever >100.5/BAY Bisacodyl (Dulcolax) 10 mg [place] QDAY PRN PRN Reason: Constipation unrelieved by MOM Cyclobenzaprine HCl (Flexeril) 10 mg PO TID PRN PRN Reason: Muscle Spasm Folic Acid (Folvite) 1 mg PO QDAY [facility] Last Admin: 03/08/17 11:43 Dose: 1 mg Heparin Sodium (Porcine) (Heparin) 5,000 unit SUB-Q Q12HR [facility] Hydromorphone HCl (Dilaudid) 0.5 mg IV Q3H PRN PRN Reason: Pain , Severe (7-10) Last Admin: 03/08/17 14:48 Dose: 0.5 mg Metronidazole (Flagyl 500 Mg/100 Ml) 500 mg in 100 mls @ 100 mls/hr IV Q8HR [facility] Last Admin: 03/08/17 11:45 Dose: 100 mls/hr Sodium Chloride (Nacl 0.9% 1000 Ml) 1,000 mls @ 125 mls/hr IV DIRECT L[facility] Last Admin: 03/08/17 18:51 Dose: 125 mls/hr Levofloxacin/Dextrose (Levaquin 750mg/150ml) 750 mg in 150 mls @ 100 mls/hr IV Q24HR [facility] PRN Reason: Protocol Last Admin: 03/08/17 13:16 Dose: 100 mls/hr Sodium Chloride (Nacl 0.9% 500 Ml) 500 mls @ 0 mls/hr IV ONCE [facility] PRN Reason: As Directed Stop: 03/08/17 23:00 Sodium Chloride (Nacl 0.9% 500 Ml) 500 mls @ 0 mls/hr IV ONCE [facility] PRN Reason: As Directed Stop: 03/09/17 06:00 Magnesium Hydroxide (Milk Of Magnesia) 30 ml PO Q4H PRN PRN Reason: Constipation Multivitamins (Theragran Tab) 1 each PO QDAY [facility] Last Admin: 03/08/17 11:43 Dose: 1 each Ondansetron HCl (Zofran) 4 mg IV Q8H PRN PRN Reason: Nausea And Vomiting Last Admin: 03/08/17 07:45 Dose: 4 mg Review of Systems Constitutional: chronic pain Breasts: deferred Genitourinary Female: pelvic pain Musculoskeletal: low back pain Exam - Constitutional Vitals: Temp Pulse Resp BP Pulse Ox 99 F 78 16 107/73 100 03/08/17 09:00 03/08/17 09:00 03/08/17 09:00 03/08/17 09:00 03/08/17 08:00 General appearance: Present: mild distress, well-nourished - EENT Eyes: Present: PERRL ENT: hearing intact, clear oral mucosa - Neck Neck: Present: supple, normal ROM - Respiratory Respiratory effort: normal Respiratory: bilateral: CTA - Cardiovascular Heart Sounds: Present: S1 & S2. Absent: rub, click - Extremities Extremities: pulses symmetrical, No edema Peripheral Pulses: within normal limits - Abdominal General gastrointestinal: Present: soft, non-tender, non-distended, normal bowel sounds Female genitourinary: Present: deferred - Rectal Rectal Exam: deferred - Integumentary Integumentary: Present: clear, warm, dry - Musculoskeletal Musculoskeletal: gait normal, strength equal bilaterally - Psychiatric Psychiatric: appropriate mood/affect, intact judgment & insight - Neurologic Neurologic: CNII-XII intact, moves all extremities Results - Labs CBC & Chem 7: 03/08/17 16:54 03/08/17 03:01 Labs: Abnormal lab results 03/08/17 03/08/17 03/08/17 Range/Units 16:54 16:58 16:59 Hgb 5.8 L* (10.1-14.3) gm/dl Hct 16.8 L* (30.3-42.9) % Lactic Acid 0.50 L (0.7-2.0) mmol/L Lactate Dehydrogenase 609 H (91-180) units/L Assessment and Plan - Patient Problems (1) Fever Current Visit: Yes Status: Acute Qualifiers: Fever type: F Encounter type: E Plan to address problem: Due to ovarian abscess, continue with iv abx. (2) LLQ pain Current Visit: Yes Status: Acute Plan to address problem: same as above (3) Left ovarian cyst Current Visit: Yes Status: Acute Plan to address problem: same as above. (4) Anemia Current Visit: Yes Status: Acute Qualifiers: Anemia type: A Iron deficiency anemia type: I Vitamin B12 deficiency anemia type: V Folate deficiency anemia type: F Bone marrow failure anemia type: B Hemolytic anemia type: H Other causes of anemia: O Chronic kidney disease stage: C Plan to address problem: blood transfusion, full w/up.
[2017-03-08 23:00] LABS: Iron 26 ug/dL (37-170)
[2017-03-08 23:00] LABS: Bilirubin,Direct 0.3 mg/dL (0-0.2); Bilirubin,Indirect 1.3 mg/dL; Bilirubin,Total 1.6 mg/dL (0.1-1.2)
[2017-03-08] MEDS: HEPARIN SUB-Q SCH (23:00)
[2017-03-09 03:13] LABS: Hemoglobin 5.9 gm/dl (10.1-14.3)
[2017-03-09 04:50] LABS: Mean Corpuscular HGB Conc 34 % (30-34); Mean Corpuscular Hemoglobin 30 pg (28-32); Mean Corpuscular Volume 86 fl (79-97); Platelet Count 199 K/mm3 (140-440); Reticulocyte % 4.53 % (0.78-2.58); White Blood Count 8.7 K/mm3 (4.5-11.0)
[2017-03-09 04:51] LABS: Anion Gap 16 mmol/L; Blood Urea Nitrogen 9 mg/dL (7-17); Calcium 7.7 mg/dL (8.4-10.2); Carbon Dioxide 19 mmol/L (22-30); Glucose 81 mg/dL (65-100); Potassium 4.3 mmol/L (3.6-5.0); Sodium 134 mmol/L (137-145)
[2017-03-09 05:03] LABS: Hematocrit 15.5 % (30.3-42.9); Hemoglobin 5.3 gm/dl (10.1-14.3); Red Cell Distribution Width 21.5 % (13.2-15.2)
[2017-03-09 05:43] LABS: Basophils % (Manual) 0 % (0.0-1.8); Blastocytes % (Manual) 0 %
[2017-03-09 05:44] LABS: Anisocytosis 1+
[2017-03-09 05:45] LABS: Microcytosis Few; Platelet Estimate Consistent w Auto; Polychromasia Few; Sickle Cells 2+
[2017-03-09 05:46] LABS: Diff Status Complete
[2017-03-09] MEDS: FLAGYL 500 MG/100 ML 500 MG/100 ML BAG IV SCH ×3 (06:25→22:56)
[2017-03-09] MEDS: NACL 0.9% 1000 ML 1,000 ML IV SCH (06:27)
[2017-03-09] MEDS: DILAUDID IV PRN ×3 (06:58→22:55)
[2017-03-09] MEDS: ZOFRAN IV PRN ×3 (06:59→22:55)
--- NOTE | 2017-03-09 09:31 | Progress Note ---
Assessment and Plan Assessment and plan: -Acute Anemia - due to Acute on Chronic Sickle Cell Anemia-PRBCs infusion ordered awaiting blood from [place], will follow up with repeated H&H levels -Sickle cell crisis-consulted hematology, IV fluids hydration ordered, continue antibiotics, O2 supplement when needed to keep O2 sat greater than 90%, when necessary pain medication ordered -Hyponatremia - normal saline IV fluids hydration, we will follow up with repeated labs after the PRBCs transfusion -Hemorrhagic cysts- DATE PULLER consulted and pending recommendation -Leukocytosis- Resolved. rule out sepsis, lactic acid normal, possible to due to sickle cell crisis versus hemorrhagic ovarian cyst- treating underlying causes -DVT prophylaxis-heparin SQ ordered -Plan discussed with the patient in detail. History Interval history: 36-year-old -Congolese female patient was seen, examined -Patient reported she had an okay night and requested to be discharged home after receiving packed red blood cells infusion. Hospitalist Physical - Constitutional Vitals: Temp Pulse Resp BP Pulse Ox 98.2 F 76 18 90/54 98 03/09/17 08:00 03/09/17 08:00 03/09/17 08:00 03/09/17 08:00 03/09/17 08:00 General appearance: Present: mild distress, well-nourished - EENT Eyes: Present: EOM intact ENT: hearing intact - Neck Neck: Present: supple, normal ROM - Respiratory Respiratory effort: normal Respiratory: bilateral: CTA - Cardiovascular Rhythm: regular Heart Sounds: Present: S1 & S2. Absent: rub, click - Extremities Extremities: pulses symmetrical, No edema Peripheral Pulses: within normal limits - Abdominal General gastrointestinal: soft, non-tender, non-distended - Integumentary Integumentary: Present: warm, dry - Psychiatric Psychiatric: appropriate mood/affect, intact judgment & insight - Neurologic Neurologic: CNII-XII intact, moves all extremities - Allied Health Allied health notes reviewed: nursing Results - Labs CBC & Chem 7: 03/10/17 05:55 03/10/17 05:55 Labs: Laboratory Last Values WBC 8.7 K/mm3 (4.5-11.0) 03/09/17 04:04 RBC 1.80 M/mm3 (3.65-5.03) L 03/09/17 04:04 Hgb 5.3 gm/dl (10.1-14.3) L* 03/09/17 04:04 Hct 15.5 % (30.3-42.9) L* 03/09/17 04:04 MCV 86 fl (79-97) 03/09/17 04:04 MCH 30 pg (28-32) 03/09/17 04:04 MCHC 34 % (30-34) 03/09/17 04:04 RDW 21.5 % (13.2-15.2) H 03/09/17 04:04 Plt Count 199 K/mm3 (140-440) 03/09/17 04:04 Lymph % (Auto) 15.9 % (13.4-35.0) 03/08/17 03:01 [place] % (Auto) 8.0 % (0.0-7.3) H 03/08/17 03:01 Eos % (Auto) 0.7 % (0.0-4.3) 03/08/17 03:01 Baso % (Auto) 0.4 % (0.0-1.8) 03/08/17 03:01 Lymph # 2.3 K/mm3 (1.2-5.4) 03/08/17 03:01 [place] # 1.2 K/mm3 (0.0-0.8) H 03/08/17 03:01 Eos # 0.1 K/mm3 (0.0-0.4) 03/08/17 03:01 Baso # 0.1 K/mm3 (0.0-0.1) 03/08/17 03:01 Add Manual Diff Complete 03/09/17 04:04 Total Counted 100 03/09/17 04:04 Seg Neutrophils % 75.0 % (40.0-70.0) H 03/08/17 03:01 Seg Neuts % (Manual) 69.0 % (40.0-70.0) 03/09/17 04:04 Band Neutrophils % 1.0 % 03/09/17 04:04 Lymphocytes % (Manual) 25.0 % (13.4-35.0) 03/09/17 04:04 Reactive Lymphs % (Man) 0 % 03/09/17 04:04 Monocytes % (Manual) 4.0 % (0.0-7.3) 03/09/17 04:04 Eosinophils % (Manual) 1.0 % (0.0-4.3) 03/09/17 04:04 Basophils % (Manual) 0 % (0.0-1.8) 03/09/17 04:04 Metamyelocytes % 0 % 03/09/17 04:04 Myelocytes % 0 % 03/09/17 04:04 Promyelocytes % 0 % 03/09/17 04:04 Blast Cells % 0 % 03/09/17 04:04 Nucleated RBC % Not Reportable 03/09/17 04:04 Seg Neutrophils # 10.8 K/mm3 (1.8-7.7) H 03/08/17 03:01 Seg Neutrophils # Man 6.0 K/mm3 (1.8-7.7) 03/09/17 04:04 Band Neutrophils # 0.1 K/mm3 03/09/17 04:04 Lymphocytes # (Manual) 2.2 K/mm3 (1.2-5.4) 03/09/17 04:04 Abs React Lymphs (Man) 0.0 K/mm3 03/09/17 04:04 Monocytes # (Manual) 0.3 K/mm3 (0.0-0.8) 03/09/17 04:04 Eosinophils # (Manual) 0.1 K/mm3 (0.0-0.4) 03/09/17 04:04 Basophils # (Manual) 0.0 K/mm3 (0.0-0.1) 03/09/17 04:04 Metamyelocytes # 0.0 K/mm3 03/09/17 04:04 Myelocytes # 0.0 K/mm3 03/09/17 04:04 Promyelocytes # 0.0 K/mm3 03/09/17 04:04 Blast Cells # 0.0 K/mm3 03/09/17 04:04 WBC Morphology Not Reportable 03/09/17 04:04 Hypersegmented Neuts Not Reportable 03/09/17 04:04 Hyposegmented Neuts Not Reportable 03/09/17 04:04 Hypogranular Neuts Not Reportable 03/09/17 04:04 Smudge Cells Not Reportable 03/09/17 04:04 Toxic Granulation Not Reportable 03/09/17 04:04 Toxic Vacuolation Not Reportable 03/09/17 04:04 Dohle Bodies Not Reportable 03/09/17 04:04 Pelger-Huet Anomaly Not Reportable 03/09/17 04:04 Ulysses Rods Not Reportable 03/09/17 04:04 Platelet Estimate Consistent w auto 03/09/17 04:04 Clumped Platelets Not Reportable 03/09/17 04:04 Plt Clumps, EDTA Not Reportable 03/09/17 04:04 Large Platelets Not Reportable 03/09/17 04:04 Giant Platelets Not Reportable 03/09/17 04:04 Platelet Satelliting Not Reportable 03/09/17 04:04 Plt Morphology Comment Not Reportable 03/09/17 04:04 RBC Morphology Not Reportable 03/09/17 04:04 Dimorphic RBCs Not Reportable 03/09/17 04:04 Polychromasia Few 03/09/17 04:04 Hypochromasia Not Reportable 03/09/17 04:04 Poikilocytosis Not Reportable 03/09/17 04:04 Anisocytosis 1+ 03/09/17 04:04 Microcytosis Few 03/09/17 04:04 Macrocytosis Not Reportable 03/09/17 04:04 Spherocytes Not Reportable 03/09/17 04:04 Pappenheimer Bodies Not Reportable 03/09/17 04:04 Sickle Cells 2+ 03/09/17 04:04 Target Cells Not Reportable 03/09/17 04:04 Tear Drop Cells Not Reportable 03/09/17 04:04 Ovalocytes Not Reportable 03/09/17 04:04 Helmet Cells Not Reportable 03/09/17 04:04 [place] Bodies Not Reportable 03/09/17 04:04 [place] Rings Not Reportable 03/09/17 04:04 [place] Cells Not Reportable 03/09/17 04:04 Bite Cells Not Reportable 03/09/17 04:04 Crenated Cell Not Reportable 03/09/17 04:04 Elliptocytes Not Reportable 03/09/17 04:04 Acanthocytes (Spur) Not Reportable 03/09/17 04:04 Rouleaux Not Reportable 03/09/17 04:04 Hemoglobin C Crystals Not Reportable 03/09/17 04:04 Schistocytes Not Reportable 03/09/17 04:04 Malaria parasites Not Reportable 03/09/17 04:04 Percent Retic 4.53 % (0.78-2.58) H 03/09/17 04:04 Drew Bodies Not Reportable 03/09/17 04:04 Hem Pathologist Commnt No 03/09/17 04:04 Sodium 134 mmol/L (137-145) L 03/09/17 04:04 Potassium 4.3 mmol/L (3.6-5.0) 03/09/17 04:04 Chloride 103.0 mmol/L (98-107) 03/09/17 04:04 Carbon Dioxide 19 mmol/L (22-30) L 03/09/17 04:04 Anion Gap 16 mmol/L 03/09/17 04:04 BUN 9 mg/dL (7-17) 03/09/17 04:04 Creatinine 0.4 mg/dL (0.7-1.2) L 03/09/17 04:04 Estimated GFR > 60 ml/min 03/09/17 04:04 BUN/Creatinine Ratio 22.50 % 03/09/17 04:04 Glucose 81 mg/dL (65-100) 03/09/17 04:04 Lactic Acid 0.50 mmol/L (0.7-2.0) L 03/08/17 16:58 Calcium 7.7 mg/dL (8.4-10.2) L 03/09/17 04:04 Iron 26 ug/dL (37-170) L 03/08/17 19:57 Ferritin 601.9 ng/mL (13.0-400.0) H 03/08/17 19:58 Total Bilirubin 1.60 mg/dL (0.1-1.2) H 03/08/17 19:58 Direct Bilirubin 0.3 mg/dL (0-0.2) H 03/08/17 19:58 Indirect Bilirubin 1.3 mg/dL 03/08/17 19:58 AST 47 units/L (5-40) H 03/08/17 03:01 ALT 16 units/L (7-56) 03/08/17 03:01 Alkaline Phosphatase 68 units/L (35-129) 03/08/17 03:01 Lactate Dehydrogenase 642 units/L (91-180) H 03/08/17 22:00 Total Protein 7.5 g/dL (6.3-8.2) 03/08/17 03:01 Albumin 4.0 g/dL (3.9-5) 03/08/17 03:01 Albumin/Globulin Ratio 1.1 % 03/08/17 03:01 HCG, Qual Negative (Negative) 03/08/17 03:01 Urine Color Yellow (Yellow) 03/07/17 14:33 Urine Turbidity Clear (Clear) 03/07/17 14:33 Urine pH 7.0 (5.0-7.0) 03/07/17 14:33 Ur Specific [place] 1.010 (1.003-1.030) 03/07/17 14:33 Urine Protein 30 mg/dl mg/dL (Negative) 03/07/17 14:33 Urine Glucose (UA) Neg mg/dL (Negative) 03/07/17 14:33 Urine Ketones Neg mg/dL (Negative) 03/07/17 14:33 Urine Blood Neg (Negative) 03/07/17 14:33 Urine Nitrite Neg (Negative) 03/07/17 14:33 Urine Bilirubin Neg (Negative) 03/07/17 14:33 Urine Urobilinogen < 2.0 mg/dL (<2.0) 03/07/17 14:33 Ur Leukocyte Esterase Neg (Negative) 03/07/17 14:33 Urine WBC (Auto) < 1.0 /HPF (0.0-6.0) 03/07/17 14:33 Urine RBC (Auto) 1.0 /HPF (0.0-6.0) 03/07/17 14:33 U Epithel Cells (Auto) < 1.0 /HPF (0-13.0) 03/07/17 14:33 Urine Bacteria (Auto) 2+ /HPF (Negative) 03/07/17 14:33 Blood Type B POSITIVE 03/09/17 04:00 Antibody Screen TNR 03/09/17 04:00 ELIJAH Antibody Screen Negative 03/09/17 04:00 Direct Antiglob Test Negative 03/08/17 22:00 KEARA (IgG-AHG) Negative 03/08/17 22:00 KEARA, Poly Interpret Negative 03/08/17 22:00 KEARA, Anti-C3 Negative 03/08/17 22:00 Crossmatch See Detail 03/09/17 04:00 - Imaging and Cardiology Chest x-ray: image reviewed (03/08/17 unremarkable)
[2017-03-09] MEDS: HEPARIN SUB-Q SCH ×2 (10:45→21:58)
[2017-03-09] MEDS: THERAGRAN Tab PO SCH (11:45)
[2017-03-09] MEDS: FOLVITE PO SCH (11:45)
[2017-03-09] MEDS: LEVAQUIN 750MG/150ML 750 MG/150 ML BAG IV SCH (12:11)
--- NOTE | 2017-03-09 17:39 | Discharge Summary ---
Providers - Providers Date of Admission: 03/08/17 08:13 Date of discharge: 03/10/17 Attending physician: DOROTEO BRYANT MD 03/08/17 08:24 Consult to Physician [CONS] Routine Consulting Provider: SUZANNE PAGE Reason For Exam: complex ovarian cyst Place consult to:: PAT Notified:: PAT Phone number called:: [phone] Was contact made?: Yes If yes, spoke with:: PAT Parra called:: 10:10 Comment:: DAVIDE NOTIFISAEL 03/08/17 08:28 Consult to Physician [CONS] Routine Consulting Provider: MARLYS MANE Reason For Exam: sickle cell crisis Place consult to:: DR. Vences Notified:: DR. Vences Phone number called:: [phone] Was contact made?: Yes If yes, spoke with:: Time called:: 09:22 Comment:: DAVIDE RIVERA Primary care physician: CANOPY INSPECTOR Hospitalization Reason for admission: abdominal pain Condition: Stable Hospital course: Patient is a 36-year-old -[place]ol[place] female presented to the ED from home with complaints of right flank pain 2 days. Pain is constant aching, rated 8 of 10 on a scale of 0/10. Worse with movement and palpation. No alleviating factors. Patient has had a fever high of 100.2 past 2 days. Imaging studies in the ER did demonstrate the suspected hemorrhagic cyst TAPE CUTTER was consulted and assisted the patient reported no evidence of PID but I encouraged continued antibiotic therapy. Patient's fever did improve she did have a subsequent decrease in her hemoglobin initially had refused a blood transfusion and then agreed to 1 units +1 unit she was only 6.3 and he hematology recommended to transfuse to get her up to 7. The patient agreed to one more unit and wants to be discharged after that. She is clinically improved no further pain is noted at this time. She is to follow-up the [place] [facility]. Also to follow with TAPE CUTTER outpatient. -Acute on chronic bronchial loss anemia secondary to sickle cell -Sickle cell crisis -Iron deficiency -Hyponatremia -Hemorrhagic cysts -Left lower quadrant abdominal pain -Leukocytosis -Sepsis ruled out Disposition: TO HOME OR SELFCARE Time spent for discharge: 35 mins Core Measure Documentation - Palliative Care Palliative Care/ Comfort Measures: Not Applicable - Core Measures Any of the following diagnoses?: none - VTE Discharge Requirements Deep Vein Thrombosis/Pulmonary Embolism Present on Admission: No Exam - Physical Exam Narrative exam: General appearance: Present: mild distress, well-nourished - EENT Eyes: Present: EOM intact ENT: hearing intact - Neck Neck: Present: supple, normal ROM - Respiratory Respiratory effort: normal Respiratory: bilateral: CTA - Cardiovascular Rhythm: regular Heart Sounds: Present: S1 & S2. Absent: rub, click - Extremities Extremities: pulses symmetrical, No edema Peripheral Pulses: within normal limits - Abdominal General gastrointestinal: soft, non-tender, non-distended - Integumentary Integumentary: Present: warm, dry - Psychiatric Psychiatric: appropriate mood/affect, intact judgment & insight - Neurologic Neurologic: CNII-XII intact, moves all extremities - Allied Health Allied health notes reviewed: nursing - Constitutional Vitals: Temp Pulse Resp BP Pulse Ox 98.2 F 76 18 90/54 98 03/09/17 08:00 03/09/17 08:00 03/09/17 08:00 03/09/17 08:00 03/09/17 08:00 Plan Activity: advance as tolerated, fall precautions Diet: regular Additional Instructions: follow at [facility] in 2-3 days Follow up with: SUZANNE PAGE MD [Staff Physician] - 7 Days PRIMARY CARE, [Primary Care Provider] - 7 Days MARLYS MANE DO [Staff Physician] - 7 Days Prescriptions: Ciprofloxacin HCl [Ciprofloxacin TAB] 500 mg PO Q12H #10 tab Folic Acid [Folvite] 1 mg PO QDAY #30 tablet metroNIDAZOLE [Flagyl] 500 mg PO Q12HR #10 tab Multivitamin Tab [Multiple Vitamin TAB (Theragran)] 1 each PO QDAY #30 tablet
[2017-03-09] MEDS ORDERED: NACL 0.9% 1000 ML 1,000 ML ONE (18:33)
[2017-03-09] MEDS ORDERED: BENADRYL IV ONE (20:00)
--- NOTE | 2017-03-09 21:22 | Consultation ---
History of Present Illness - Reason for Consult Consult date: 03/09/17 - History of Present Illness Patient seen/examined, resting in bed, NAD, blood transfusion in progress. current HGB5.9, and recommend, if hgb 7.0 and above, may stop transfusion, and disposition will be as per you. W/UP so far , negative. orquidea 609, ldh high, [id number].once home, she is to see me in the office in 7-10 days. Past History Past Medical History: other (Sickle Cell Anemia) Past Surgical History: Other (Right Chest wall Port placed 2001) Social history: single, lives with family (lives with her son), full code. denies: smoking, alcohol abuse, prescription drug abuse, IV drug use Family history: CAD, diabetes. denies: other (Cardiac arrest) Medications and Allergies Allergies Allergy/AdvReac Type Severity Reaction Status Date / Time amoxicillin Allergy Hives Verified 03/08/17 06:09 erythromycin base Allergy Hives Verified 11/24/15 19:24 Home Medications Medication Instructions Recorded Confirmed Last Taken Type Acetaminophen/Codeine [Tylenol 1 tab PO Q6H PRN #30 tab 07/01/14 03/08/17 Rx /Codeine # 3 tab] Cyclobenzaprine [Flexeril 10 MG 10 mg PO TID PRN #30 tablet 07/01/14 03/08/17 Rx TAB] Ciprofloxacin HCl [Ciprofloxacin 500 mg PO Q12H #10 tab 03/09/17 Unknown Rx TAB] Folic Acid [Folvite] 1 mg PO QDAY #30 tablet 03/09/17 Unknown Rx Multivitamin Tab [Multiple Vitamin 1 each PO QDAY #30 tablet 03/09/17 Unknown Rx TAB (Theragran)] metroNIDAZOLE [Flagyl] 500 mg PO Q12HR #10 tab 03/09/17 Unknown Rx Active Meds: Active Medications Acetaminophen (Tylenol) 650 mg PO Q4H PRN PRN Reason: Pain MILD(1-3)/Fever >100.5/BAY Bisacodyl (Dulcolax) 10 mg MN QDAY PRN PRN Reason: Constipation unrelieved by MOM Cyclobenzaprine HCl (Flexeril) 10 mg PO TID PRN PRN Reason: Muscle Spasm Folic Acid (Folvite) 1 mg PO QDAY LUD[facility]INA Last Admin: 03/09/17 11:45 Dose: 1 mg Heparin Sodium (Porcine) (Heparin) 5,000 unit SUB-Q Q12HR [facility] Last Admin: 03/09/17 10:45 Dose: Not Given Hydromorphone HCl (Dilaudid) 0.5 mg IV Q3H PRN PRN Reason: Pain , Severe (7-10) Last Admin: 03/09/17 12:08 Dose: 0.5 mg Metronidazole (Flagyl 500 Mg/100 Ml) 500 mg in 100 mls @ 100 mls/hr IV Q8HR [facility] Last Admin: 03/09/17 14:44 Dose: 100 mls/hr Levofloxacin/Dextrose (Levaquin 750mg/150ml) 750 mg in 150 mls @ 100 mls/hr IV Q24HR [facility] PRN Reason: Protocol Last Admin: 03/09/17 12:11 Dose: 100 mls/hr Magnesium Hydroxide (Milk Of Magnesia) 30 ml PO Q4H PRN PRN Reason: Constipation Multivitamins (Theragran Tab) 1 each PO QDAY [facility] Last Admin: 03/09/17 11:45 Dose: 1 each Ondansetron HCl (Zofran) 4 mg IV Q4H PRN PRN Reason: Nausea And Vomiting Review of Systems Constitutional: chronic pain Breasts: deferred Exam - Constitutional Vitals: Temp Pulse Resp BP Pulse Ox 99.3 F 91 H 18 95/64 100 03/09/17 20:36 03/09/17 20:36 03/09/17 20:36 03/09/17 20:36 03/09/17 20:36 General appearance: Present: no acute distress, well-nourished - EENT Eyes: Present: PERRL ENT: hearing intact, clear oral mucosa - Neck Neck: Present: supple, normal ROM - Respiratory Respiratory effort: normal Respiratory: bilateral: CTA - Cardiovascular Heart Sounds: Present: S1 & S2. Absent: rub, click - Extremities Extremities: pulses symmetrical, No edema Peripheral Pulses: within normal limits - Abdominal General gastrointestinal: Present: soft, non-tender, non-distended, normal bowel sounds Female genitourinary: Present: deferred, lesions - Rectal Rectal Exam: deferred - Integumentary Integumentary: Present: clear, warm, dry - Musculoskeletal Musculoskeletal: gait normal, strength equal bilaterally - Psychiatric Psychiatric: appropriate mood/affect, intact judgment & insight - Neurologic Neurologic: CNII-XII intact, moves all extremities Results - Labs CBC & Chem 7: 03/09/17 04:04 03/09/17 04:04 Labs: Abnormal lab results 03/08/17 03/08/17 03/08/17 Range/Units 19:57 19:58 19:58 RBC (3.65-5.03) M/mm3 Hgb (10.1-14.3) gm/dl Hct (30.3-42.9) % RDW (13.2-15.2) % Percent Retic (0.78-2.58) % Sodium (137-145) mmol/L Carbon Dioxide (22-30) mmol/L Creatinine (0.7-1.2) mg/dL Calcium (8.4-10.2) mg/dL Iron 26 L (37-170) ug/dL Ferritin 601.9 H (13.0-400.0) ng/mL Total Bilirubin 1.60 H (0.1-1.2) mg/dL Direct Bilirubin 0.3 H (0-0.2) mg/dL Lactate Dehydrogenase (91-180) units/L Crossmatch 03/08/17 03/09/17 03/09/17 Range/Units 22:00 00:00 04:00 RBC (3.65-5.03) M/mm3 Hgb 5.9 L* (10.1-14.3) gm/dl Hct 17.0 L* (30.3-42.9) % RDW (13.2-15.2) % Percent Retic (0.78-2.58) % Sodium (137-145) mmol/L Carbon Dioxide (22-30) mmol/L Creatinine (0.7-1.2) mg/dL Calcium (8.4-10.2) mg/dL Iron (37-170) ug/dL Ferritin (13.0-400.0) ng/mL Total Bilirubin (0.1-1.2) mg/dL Direct Bilirubin (0-0.2) mg/dL Lactate Dehydrogenase 642 H (91-180) units/L Crossmatch See Detail 03/09/17 03/09/17 Range/Units 04:04 04:04 RBC 1.80 L (3.65-5.03) M/mm3 Hgb 5.3 L* (10.1-14.3) gm/dl Hct 15.5 L* (30.3-42.9) % RDW 21.5 H (13.2-15.2) % Percent Retic 4.53 H (0.78-2.58) % Sodium 134 L (137-145) mmol/L Carbon Dioxide 19 L (22-30) mmol/L Creatinine 0.4 L (0.7-1.2) mg/dL Calcium 7.7 L (8.4-10.2) mg/dL Iron (37-170) ug/dL Ferritin (13.0-400.0) ng/mL Total Bilirubin (0.1-1.2) mg/dL Direct Bilirubin (0-0.2) mg/dL Lactate Dehydrogenase (91-180) units/L Crossmatch Assessment and Plan - Patient Problems (1) Fever Current Visit: Yes Status: Acute Qualifiers: Fever type: F Encounter type: E Plan to address problem: Due to ovarian abscess, continue with iv abx. (2) LLQ pain Current Visit: Yes Status: Acute Plan to address problem: same as above (3) Left ovarian cyst Current Visit: Yes Status: Acute Plan to address problem: same as above. (4) Anemia Current Visit: Yes Status: Acute Qualifiers: Anemia type: A Iron deficiency anemia type: I Vitamin B12 deficiency anemia type: V Folate deficiency anemia type: F Bone marrow failure anemia type: B Hemolytic anemia type: H Other causes of anemia: O Chronic kidney disease stage: C Plan to address problem: blood transfusion, full w/up.
[2017-03-10] MEDS: FLAGYL 500 MG/100 ML 500 MG/100 ML BAG IV SCH (05:25)
[2017-03-10 06:41] LABS: Basophils % (Auto) 1.2 % (0.0-1.8); Eosinophils % (Auto) 2.1 % (0.0-4.3); Hemoglobin 6.3 gm/dl (10.1-14.3); Mean Corpuscular HGB Conc 34 % (30-34); Mean Corpuscular Hemoglobin 29 pg (28-32); Mean Corpuscular Volume 84 fl (79-97); Platelet Count 221 K/mm3 (140-440); Red Blood Count 2.19 M/mm3 (3.65-5.03); Red Cell Distribution Width 18.9 % (13.2-15.2); Reticulocyte % 6.77 % (0.78-2.58); White Blood Count 7.6 K/mm3 (4.5-11.0)
[2017-03-10 06:42] LABS: Hemoglobin 6.3 gm/dl (10.1-14.3)
[2017-03-10 06:45] LABS: Hematocrit 18.5 % (30.3-42.9); Hematocrit 18.9 % (30.3-42.9)
[2017-03-10 06:58] LABS: Anion Gap 16 mmol/L; Blood Urea Nitrogen 8 mg/dL (7-17); Carbon Dioxide 20 mmol/L (22-30); Chloride 107.8 mmol/L (98-107); Glucose 82 mg/dL (65-100); Potassium 4.1 mmol/L (3.6-5.0); Sodium 140 mmol/L (137-145)
[2017-03-10] MEDS: DILAUDID IV PRN ×2 (07:14→12:54)
[2017-03-10] MEDS: ZOFRAN IV PRN ×2 (07:14→12:53)
[2017-03-10] MEDS ORDERED: BENADRYL IV ONE (09:24)
[2017-03-10] MEDS: LEVAQUIN 750MG/150ML 750 MG/150 ML BAG IV SCH (09:55)
[2017-03-10] MEDS: FOLVITE PO SCH (09:57)
[2017-03-10] MEDS: THERAGRAN Tab PO SCH (09:57)
[2017-03-10] MEDS: HEPARIN SUB-Q SCH (09:59)
[2017-03-10] MEDS ORDERED: FLUSH HEPARIN IV ONE (16:00)
[2017-03-10] MEDS ORDERED: TRIPLE ANTIBIOTIC TP ONE (16:00)
--- NOTE | 2017-03-10 17:35 | Event Note ---
Date: 03/10/17 patient report reviewed , she is d/c. no further actions,
[2017-03-10 17:43] VITALS: BP 93/61
[2017-03-14 09:13] LABS: Total Iron Binding Capacity 173 mcg/dL (250-450)
== END 2017-03-10 16:45 | disposition home or self-care (01) | DRG 812 ==
LOC: ED 13:00 → 3A 03-08 08:13
PROVIDERS: ADMIT Internal Medicine; ATTEND Internal Medicine
PROC: 30233N1 Transfusion of Nonautologous Red Blood Cells into Peripheral Vein, Percutaneous Approach (ICD-10-PCS; principal; 2017-03-08)
DX: D57.00 Hb-SS disease with crisis, unspecified (principal); E87.1 Hypo-osmolality and hyponatremia; N70.92 Oophoritis, unspecified; N83.202 Unspecified ovarian cyst, left side; D62 Acute posthemorrhagic anemia; D64.9 Anemia, unspecified; Z88.8 Allergy status to other drugs, medicaments and biological substances; Z90.49 Acquired absence of other specified parts of digestive tract; Z82.49 Family history of ischemic heart disease and other diseases of the circulatory system; Z83.3 Family history of diabetes mellitus; Z98.891 History of uterine scar from previous surgery
CPT/HCPCS: 36415; 71020; 74176; 76830; 80048; 80074; 81001; 82140; 82232; 82248; 82728; 83010; 83550; 83615; 84703; 85007; 85014; 85018; 85025; 85045; 85660; 86850; 86880; 86900; 86901; 86902; 86920; 87040; 87086; 87591; 93975; 96374; 96375; A6250; J1170; J1200; J1642; J1644; J1815; J1885; J1956; J2270; J2405; J3370; J7030; P9016

== ENCOUNTER 2017-06-13 08:16 | Outpatient (CLI) | payer MEDICARE ==
[~2017-06-13 08:16] MED LIST: NACL ONE
--- NOTE | 2017-06-13 12:19 | Ultrasound Report ---
ULTRASOUND PELVIC COMPLETE ULTRASOUND TRANSVAGINAL HISTORY: Ovarian cyst. TECHNIQUE: Transabdominal and transvaginal ultrasound with color and spectral doppler interrogation. COMPARISON: 03/08/17. The uterus is anteverted and measures 7.5 x 3.2 x 3.7 cm. No uterine mass is appreciated. The endometrial stripe measures 5 mm. The cervix is unremarkable. There is mild to moderate pelvic ascites. The right ovary measures 3.8 x 2.3 x 2.8 cm. A 1.6 cm simple cyst is identified in the right ovary. One of the right ovarian cysts has resolved. The left ovary measures 4.3 x 2.6 x 2.9 cm. A 3.3 cm simple cyst is noted in the left ovary. The complex left ovarian lesion which may have represented a hemorrhagic cyst has resolved. IMPRESSION: Bilateral ovarian cysts as described. Mild to moderate pelvic ascites.
== END 2017-06-13 08:17 | disposition home or self-care (01) ==
LOC: US 08:16
PROVIDERS: ATTEND Obstetrics & Gynecology
DX: N83.291 Other ovarian cyst, right side (principal); N83.292 Other ovarian cyst, left side; R18.8 Other ascites
CPT/HCPCS: 76830; 76856

== ENCOUNTER 2017-06-17 23:52 | Emergency (ER) | payer MEDICARE ==
[2017-06-18 03:11] LABS: Hemoglobin 7.2 gm/dl (10.1-14.3); Mean Corpuscular Hemoglobin 31 pg (28-32); Mean Corpuscular Volume 81 fl (79-97); Platelet Count 322 K/mm3 (140-440); Red Blood Count 2.35 M/mm3 (3.65-5.03); White Blood Count 8.9 K/mm3 (4.5-11.0)
[2017-06-18 03:13] LABS: Mean Corpuscular HGB Conc 37 % (30-34); Red Cell Distribution Width 26.1 % (13.2-15.2)
[2017-06-18 03:25] LABS: Alanine Aminotransferase 13 units/L (7-56); Albumin 4.3 g/dL (3.9-5); Albumin/Globulin Ratio 1.1 %; Alkaline Phosphatase 75 units/L (35-129); Anion Gap 22 mmol/L; BUN/Creatinine Ratio 28; Blood Urea Nitrogen 11 mg/dL (7-17); Calcium 9.1 mg/dL (8.4-10.2); Carbon Dioxide 17 mmol/L (22-30); Chloride 103.8 mmol/L (98-107); Glucose 74 mg/dL (65-100); Potassium 4.5 mmol/L (3.6-5.0); Sodium 138 mmol/L (137-145); Total Protein 8.2 g/dL (6.3-8.2)
[2017-06-18 04:13] LABS: Anisocytosis 3+; Blastocytes % (Manual) 0 %; Hypochromasia 1+; Polychromasia 1+; Sickle Cells 1+
[2017-06-18 04:14] LABS: Diff Status Complete; Platelet Estimate Consistent w Auto
[2017-06-18 05:34] VITALS: BP 106/54
== END 2017-06-18 06:00 | disposition left against medical advice (07) ==
LOC: ED 23:52
DX: R20.0 Anesthesia of skin (principal); R51 Headache; Z53.21 Procedure and treatment not carried out due to patient leaving prior to being seen by health care provider
CPT/HCPCS: 36415; 80053; 85007; 85025